=== PATIENT | male | born 1975 | race Hispanic/Latino ===

== ENCOUNTER 2019-05-13 14:22 | Outpatient (CLI) | payer OTHER ==
--- NOTE | 2019-05-13 14:55 | ULT ---
US Renal Bilateral STANDARD HISTORY: Left flank pain. Findings: Real-time imaging of the right and left kidneys were performed. The right kidney measures 1 1.4 cm the left kidney 13.1 cm in size. There are no signs of cyst, mass or obstruction. Bladder region appears unremarkable. IMPRESSION: Unremarkable renal ultrasound.
== END 2019-05-13 14:23 | disposition home or self-care (01) ==
LOC: ULT 14:22
PROVIDERS: ATTEND Family Medicine
DX: N20.0 Calculus of kidney (principal)
CPT/HCPCS: 76770